=== PATIENT | female | born 1965 | race Caucasian/White ===

== ENCOUNTER 2018-12-06 05:17 | Day surgery (SDC) | payer OTHER ==
[~2018-12-06] VITALS: Ht 170.2 cm; Wt 99.8 kg
--- NOTE | ~2018-12-06 | O ---
[facility] [place] [address] OPERATIVE REPORT Name: STEWMELISSALEAHLENA M Room #: DEP [facility]..#: [id number] Admission: 12/06/18 ������������������ Attend Phys: Luis Alfredo Ambriz MD Discharge: 12/06/18 ������������������ Date of : 69 Report #: [id number] THIS REPORT FOR: //name// CC: Luis Alfredo Bae DATE OF SERVICE: 12/06/2018 PREOPERATIVE DIAGNOSES: Septal deformity, turbinate hypertrophy and nasal airway obstruction. POSTOPERATIVE DIAGNOSES: Septal deformity, turbinate hypertrophy and nasal airway obstruction. PROCEDURES: Nasal septoplasty, inferior turbinate submucous resection and outfracturing. SURGEON: Luis Alfredo Ambriz M.D. ANESTHESIA: General LMA. INDICATIONS: See H and P. TECHNIQUE: After obtaining consent, she was brought to the operating suite and appropriate time-out was performed. General LMA anesthesia was obtained and the bed was turned 90 degrees. She was placed in a slight head-up position. The nose was prepped and draped in the usual sterile fashion. A 4 mL of 1% Xylocaine and 1:100,000 epinephrine was injected in each side of the nasal septum. Later in the case, an additional 1.5 mL was injected on the medial surface of each inferior turbinate, care being made not to inject intravascularly. A right-sided hemitransfixion incision was performed, with elevation of the mucosal flap off the quadrangular cartilage, vomer and perpendicular plate on the left side. I then harvested a large piece of quadrangular cartilage, leaving enough on the caudal and cranial edges for tip support. Bony cartilaginous junction was disarticulated. I elevated mucosal flap off the right side, fully exposing the vomer and perpendicular plate and then returning inferiorly towards the maxillary crest. It was noted to be a fair deviation or bowing of the maxillary crest as well, which I removed with a combination of Lan-Olea punches and scissors. During removal, there was creation of a small mucosal tear on the left side, but there were no adjacent flap tears on the right side. Upon removal of all the deviated portion of the septum, previously removed quadrangular cartilage was trimmed, morcellized and placed back between the mid septal folds. Hemitransfixion incision was closed with simple interrupted chromic sutures. I then designed and fashioned simple [address] [address] OPERATIVE REPORT Name: LENA MELGAR Room #: DEP [facility] Gale#: [id number] Admission: 12/06/18 ������������������ Attend Phys: Luis Alfredo Ambriz MD Discharge: 12/06/18 ������������������ Date of : 69 Report #: [id number] splints, places these on each side and secured with 3-0 Prolene suture. Prior to placing these, I made sure that the mucosal flap on the left side was unfurled. It should be noted that she did have a small area of mucosal excoriation on the left anterior septum and in looking at the cartilage in this area, the cartilage was somewhat thinned out, but there were no signs of any perforation on the right side of the opening. At this point, each inferior turbinate was medialized with a Brooks. A stab incision was made in the anterior face of each inferior turbinate and the submucosal flap developed on the medial and medial inferior surfaces. This was submucosally debrided with a microdebrider. I then outfractured each inferior turbinate. A single Merogel was then placed between the septum and the turbinate to prevent medialization. The nasopharynx was suctioned free of secretions. She returned to Anesthesia, where she was lightened, extubated and taken to recovery room in stable condition. ESTIMATED BLOOD LOSS: 50 mL. ��������������������������������������������� ���������������������������������������� By: ��������������������������������������������� [id number] Luis Alfredo Ambriz MD /michelle
[~2018-12-06 05:17] MED LIST: CALCIUM + VITA1 EACH PO; CRESTOR20 MG PO; EFFEXOR XR75 MG PO; FISH OIL 1,001000 M2 PO; SYNTHROID112 MC1 PO; TOPAMAX 100 MG100 MG PO; VITAMIN D5000 UNIT PO; XANAX 0.5 MG0.5 MG PO
[2018-12-06 07:07] VITALS: BP 118/72
[2018-12-06 09:39] VITALS: BP 118/72
== END 2018-12-06 10:18 | disposition home or self-care (01) ==
LOC: TBA 05:17 → OR 05:17
DX: J34.2 Deviated nasal septum (principal); J34.3 Hypertrophy of nasal turbinates; J34.89 Other specified disorders of nose and nasal sinuses; G43.909 Migraine, unspecified, not intractable, without status migrainosus; E78.00 Pure hypercholesterolemia, unspecified; E03.9 Hypothyroidism, unspecified; F32.9 Major depressive disorder, single episode, unspecified; F41.9 Anxiety disorder, unspecified; Z98.41 Cataract extraction status, right eye; Z98.42 Cataract extraction status, left eye; Z90.49 Acquired absence of other specified parts of digestive tract; Z98.890 Other specified postprocedural states; Z79.899 Other long term (current) drug therapy
CPT/HCPCS: 50010; 50101; 50386; 50398; 51316; 51634; 53635; 56526; 56528; 62110; 62900; 64037; 70005